=== PATIENT | male | born 1965 | race Caucasian/White ===

== ENCOUNTER 2022-10-14 17:09 | Emergency (ER) | payer SELFPAY ==
[~2022-10-14] VITALS: Ht 185.4 cm; Wt 93.0 kg
--- NOTE | 2022-10-14 17:40 | NUR ---
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
[2022-10-14] MEDS ORDERED: diphenhydrAMINE HCL 25 MG CAPSULE ONE (17:50)
[2022-10-14] MEDS: diphenhydrAMINE HCL 25 MG CAPSULE PO ONE (17:52)
[2022-10-14] MEDS ORDERED: DIPH28CR TP ×2 (17:52→17:53)
[2022-10-14] MEDS ORDERED: CEPH500C2 PO ×2 (17:52→17:53)
[2022-10-14] MEDS ORDERED: COMP-12 MC ×2 (17:52→17:53)
--- NOTE | 2022-10-14 18:20 | NUR ---
Patient discharged to home in stable condition. Written and verbal after care instructions given. Patient verbalizes understanding of instruction. WOUND DRESSING DONE.
[2022-10-14 18:26] VITALS: BP 110/76
== END 2022-10-14 18:20 | disposition home or self-care (01) ==
LOC: ER 17:15
DX: I87.013 Postthrombotic syndrome with ulcer of bilateral lower extremity (principal)
CPT/HCPCS: 99283; Q0163; A6403